=== PATIENT | female | born 1965 | race Asian ===

== ENCOUNTER 2017-09-12 06:12 | Day surgery (SDC) | payer OTHER ==
[2017-09-12] MEDS ORDERED: MIDAZOLAM 1 MG/ML 2 ML INJ (08:31)
[2017-09-12] MEDS ORDERED: FENTAnyl 50 MCG/ML VIAL (08:31)
== END 2017-09-12 10:16 | disposition home or self-care (01) ==
LOC: GIL 06:12
DX: Z12.11 Encounter for screening for malignant neoplasm of colon (principal); K64.8 Other hemorrhoids
CPT/HCPCS: 45378